=== PATIENT | male | born 1975 | race Caucasian/White ===

== ENCOUNTER 2024-05-12 16:15 | Emergency (ER) | payer BC, SELFPAY ==
[2024-05-12 16:15] VITALS: BMI 28.1
[2024-05-12 16:33] VITALS: BP 140/101
--- NOTE | 2024-05-12 16:55 | ED.GENMED ---
History of Present Illness
General
Chief Complaint: Flank Pain
Source: patient
Exam Limitations: none
Time Seen by Provider: 05/12/24 16:37
Nursing documentation reviewed up to this point in time: agreed with
History of Present Illness
History of Present Illness:
Patient is a 48-year male who presents to the complaining of right flank pain that started today gradually. He has had multiple kidney stones in the past but reports this started more gradual than abrupt but this does still feel similar to his pain
with previous stone. He passed all stones on his own. He has not seen urologist. He has nauseous and vomiting. Denies any fever or chills. He tells me he has not urinated at all today. He denies any radiation of pain. Denies any testicle pain.
Past History
Past History
ED Past Medical History: Asthma and Other (prostatitis, prostate stones Kidney stones)
ED Past Surgical History: Other (bone graft from right hip to right wrist)
Patient has exhibited threatening behavior?: No
Social History
Tobacco: Former smoker (Chews tobacco)
Alcohol: Occasional
Personal:
Living: with family
Review of Systems
Review of Systems
Allergies reviewed?: Yes
All Other Systems: ROS reviewed and negative except as documented in HPI and ROS
Constitutional: Reports no symptoms; Denies fever, fatigue or chills
Respiratory: Reports no symptoms
Cardiac: Reports no symptoms
ABD/GI: Reports nausea and vomiting; Denies abdominal pain
: Reports flank pain
Musculoskeletal: Reports no symptoms
Skin: Reports no symptoms
Neurological: Reports no symptoms
Hematologic/Lymphatic: Reports no symptoms
Psychiatric: Reports no symptoms
Phy Exam
General Physical Exam
General Presentation: no apparent distress
General age: appears stated age
General Skin: warm and dry
General Habitus: normal
General Mental: alert
General Hydration: appears well hydrated
Gastrointestinal Exam
Gastrointestinal Exam: non tender and soft
Neurological Exam
Neurological Exam: alert and oriented x3
Musculoskeletal Exam
Musculoskeletal Exam: full ROM
Skin Exam
Skin Exam: normal color and warm/dry
Psychiatric Exam
Psychiatric Exam: normal mood/affect
Course
Orders/Labs/Results
Orders:
Orders
05/12/24 16:46
Complete Blood Count/With Diff Urgent
Comprehensive Metabolic Panel Urgent
05/12/24 16:50
0.9% Sodium Chloride 1000 ml [Nss] 1,000 ml IV BOLUS
Ketorolac [Toradol] 15 mg IV NOW STA
Ondansetron Injectable [Zofran] 4 mg IV NOW STA
05/12/24 17:49
CT Abd/pel Without Iv Or Oral Urgent
Comment:
Reason For Exam: right flank pain
05/12/24 17:54
Vital Signs- Treatment ONCE
Frequency: Once
05/12/24 19:46
Ondansetron Injectable [Zofran] 4 mg IV NOW STA
05/12/24 19:47
Hydrocodone 5/APAP 325 [Avon 5/325] 1 tablet PO NOW STA
05/12/24 19:48
Urinalysis Reflex To Culture Urgent
Date Specimen was Collected: 05/12/24
Time Specimen was Collected: 16:38
Urine Microscopic Reflex Cult Urgent
Urine Culture Urgent
TRISHA Source: U
Specimen Description:
Date Specimen was Collected: 05/12/24
Time Specimen was Collected: 16:38
Abnormal Lab Results
05/12/24 05/12/24
16:46 19:48
MCH 31.3 H pg
(27.0-31.0)
Absolute Neuts (auto) 7.1 H 10^3/uL
(1.4-6.5)
Absolute Monos (auto) 0.7 H 10^3/uL
(0.1-0.6)
Neutrophils % 77.0 H %
(42.2-75.2)
Lymphocytes % 14.9 L %
(20.5-51.1)
Creatinine 1.4 H mg/dL
(0.7-1.3)
Albumin 5.1 H g/dl
(3.5-5.0)
Urine Ketones Trace A
(Negative)
Ur Occult Blood Reflex 4+ A
(Negative)
Urine Bilirubin 1+ A
(Negative)
Leukocyte Esterase Rfl Trace A
(Negative)
Urine RBC 70-80 A /HPF
(0-2)
Urine Bacteria (Reflex) Moderate A
(Negative)
05/12/24 16:46
05/12/24 16:46
Vital Signs
Initial and Last Documented VS:
Initial Vital Signs
Temp Pulse Resp BP Pulse Ox
98.0 F 78 16 140/101 98
05/12/24 16:33 05/12/24 16:33 05/12/24 16:33 05/12/24 16:33 05/12/24 16:33
Last Documented Vital Signs
Temp Pulse Resp BP Pulse Ox
98.0 F 78 16 140/101 98
05/12/24 16:33 05/12/24 16:33 05/12/24 16:33 05/12/24 16:33 05/12/24 16:33
MDM/Problems Addressed
Differential Diagnosis Includes:
not limited to : renal colic less likely pyelonephritis
MDM/Problems Addressed:
Patient is a 48-year male with prior history kidney stones presented with right flank pain. Patient has a 9 mm proximal right ureteral calculus with associated mild to moderate right hydro and urinary nephrosis. Patient was given Toradol fluids
feels well to go home will check urine and plan for discharge home with urology follow-up.
2025:
Dr. Alvares made aware it is likely the patient will not pass a stone he will need surgery
Patient still feels well enough to go home. urine neg for uti. will DC with Shane Barajas and close outpatient follow-up discussed to call urology tomorrow. Dr. Alvares plan for surgery next week unless fever chills or increased pain. Patient
is to return if any worsening of symptoms.
Chronic conditions affecting care:
hx of renal colic
*Critical Care Note
Total Time (30-74mins, 75-104mins- exclusive of procedures): Not Applicable
ED Attending Note
-
Portions of this chart may have been created with voice recognition software.� Occasional wrong word or��sound alike� substitutions may have occurred due to the inherent limitations of voice recognition software.
Discharge Plan
Departure
Patient Disposition: Home (Routine Discharge)
Date of Disposition: 05/12/24
Time of Disposition: 20:29
Patient with high blood pressure during this ER visit?: Yes
Condition: Fair
Covid-19: Not Applicable
Discharge Problem:
renal colic
Instructions: Kidney Stones (DC), How to Strain Your Urine, BLOOD PRESSURE, Narcotic Pain Medication
Prescriptions:
New
hydrocodone-acetaminophen 5-325 mg tablet
1 tab PO Q6H PRN (Reason: Pain) Qty: 10 0RF
tamsulosin [Flomax] 0.4 mg capsule
0.4 mg PO DAILY Qty: 7 0RF
ondansetron HCl 4 mg tablet
4 mg PO Q6H PRN (Reason: nausea and vomiting) Qty: 10 0RF
No Action
cholecalciferol (vitamin D3) 1,000 UNITS tablet
5,000 units PO DAILY
theanine 200 MG capsule
200 mg PO DAILY
Nitric Oxide
2 tab PO DAILY
Keto Bhp
1 tab PO DAILY
hydrocodone-acetaminophen 1 TABLET tablet
1 tab PO Q4HPRN PRN (Reason: pain ) Qty: 12 0RF
Referrals:
Brown Alvares MD [Active] -
Tomasz Baker MD [Family Provider] -
Activity Restrictions/Additional Instructions:
As discussed stay well-hydrated .
you may strain urine however with size of kidney stone is likely that you will need surgery. You have a 9 mm stone in the right ureter.
You may take ibuprofen 600 mg every hours with food. In addition a prescription for stronger narcotic pain medicine was sent to your pharmacy take as directed. This will cause constipation be sure to take [id number] stool softeners while
taking this. No driving or drink alcohol taking this medication. Zofran as needed for nausea. Return to the ER if any worsening of symptoms of increased pain nausea vomiting fever chills call urology tomorrow to make an appointment in the next
several days for reevaluation
Interventions
Interventions:
*Risk Screen - Suicide Last Done: 05/12/24 16:58
*Neglect/Abuse Screening Last Done: 05/12/24 16:58
*ED COVID-19 Vaccine History Last Done: 05/12/24 16:33
ED-Male Genitourinary Assessment Last Done: 05/12/24 16:58
Discharge Date and Time
Print Language: KITTITIAN
[2024-05-12 16:58] LABS: % Basophils 0.2 % (0-2); % Eosinophils 0.4 % (0-6); % Immature Granulocytes 0.3 % (0-0.5); % Lymphocytes 14.9 % (20.5-51.1); % Monocytes 7.2 % (1.7-9.3); Absolute Lymphocytes 1.4 10^3/uL (1.2-3.4); Absolute Monocytes 0.7 10^3/uL (0.1-0.6); Absolute Neutrophils 7.1 10^3/uL (1.4-6.5); Hemoglobin 15.7 g/dL (13.0-18.0); Mean Corp Hgb Conc. 35.7 g/dL (33.0-37.0); Mean Corpuscular Hgb 31.3 pg (27.0-31.0); Mean Corpuscular Volume 87.6 fL (80.0-94.0); Mean Platelet Volume 8.1 fL (7.4-10.4); Nucleated Red Blood Cells % 0 % (-); Platelet Count 251 10^3/uL (130-400); Red Blood Cell Count 5.02 10^6/uL (4.70-6.10); Red Cell Dist. Width 13.3 % (11.5-14.5); White Blood Cell Count 9.2 10^3/uL (4.8-10.8)
[2024-05-12] MEDS: ZOFRAN 4 MG IV ×2 (16:59→19:54)
[2024-05-12] MEDS: TORADOL 15 MG IV (16:59)
[2024-05-12] MEDS: NSS 1000 IV (17:04)
[2024-05-12 17:41] LABS: ALT (SGPT) 38 U/L (0-50); AST (SGOT) 29 U/L (17-59); Albumin 5.1 g/dl (3.5-5.0); Alkaline Phosphatase 71 U/L (38-126); Blood Urea Nitrogen 16 mg/dl (9-20); Calcium 10.2 mg/dl (8.4-10.2); Carbon Dioxide 26 mmol/L (22-30); Chloride 105 mmol/L (98-107); Estimated Creatinine Clearance 78 ml/min; Glucose 90 mg/dl (70-99); Potassium 4.5 mmol/L (3.5-5.1); Sodium 140 mmol/L (135-145); Total Bilirubin 0.9 mg/dl (0.2-1.3); Total Protein 7.6 g/dl (6.3-8.2); eGFR > 60.00
[2024-05-12] MEDS: NORCO 5/325 1 TABLET PO (19:53)
[2024-05-12 20:01] LABS: Urine Albumin Trace (Neg - Trace); Urine Bilirubin 1+ (Negative); Urine Character Clear (Clear); Urine Color Yellow; Urine Glucose Negative (Negative); Urine Ketone Trace (Negative); Urine Leukocyte Trace (Negative); Urine Nitrite Negative (Negative); Urine Occult Blood 4+ (Negative); Urine Specific Gravity 1.025 (<1.030); Urine Urobilinogen Negative (Neg - 1+)
[2024-05-12 20:09] LABS: Urine Calcium Oxalate Crystals Present; Urine Mucus Few
[2024-05-12 20:10] LABS: Urine Bacteria Moderate (Negative); Urine Red Blood Cell 70-80 /HPF (0-2)
[2024-05-12 20:54] VITALS: BP 117/68
== END 2024-05-12 20:55 | disposition home or self-care (01) ==
LOC: EMR 16:15
PROVIDERS: EMERGENCY PHYSICIAN Student in an Organized Health Care Education/Training Program; FAMILY PHYSICIAN Family Medicine
DX: N23 Unspecified renal colic (principal); J45.909 Unspecified asthma, uncomplicated; N41.9 Inflammatory disease of prostate, unspecified; Z87.891 Personal history of nicotine dependence; Z87.442 Personal history of urinary calculi
CPT/HCPCS: 99284; 96374; 96375; 96376; 96361; 74176; 80053; 81003; 81015; 85025; 87086

== ENCOUNTER 2024-05-13 21:25 | Observation (INO) | payer BC, SELFPAY ==
[2024-05-13 16:52] VITALS: BP 135/95
[2024-05-13] MEDS: ZOFRAN 4 MG IV (19:36)
[2024-05-13] MEDS: DILAUDID 0.5 MG IV (19:36)
[2024-05-13] MEDS: NSS 1000 IV ×2 (19:37→22:54)
--- NOTE | 2024-05-13 19:43 | ED.GENMED ---
History of Present Illness
General
Chief Complaint: Male Genito-Urinary Symptoms
Source: patient
Exam Limitations: none
Time Seen by Provider: 05/13/24 19:04
Nursing documentation reviewed up to this point in time: agreed with
History of Present Illness
History of Present Illness:
Patient to ED wt complaint of right flank pain. He was seen in ED yesterday. CT reveals 9mm proximal ureteral stone with moderate hydroureteronephrosis. Dr. Alvares notifed by provider. Patient was offered admission, discussed need for
surgical intervention however he opted to be discharged home and follow up with urology in office. He returnt tonight because pain has become intolerable. Denies fever/chills. +n/v. Brought to ED by spouse.
Past History
Past History
ED Past Medical History: Asthma and Other (prostatitis, prostate stones Kidney stones)
ED Past Surgical History: Other (bone graft from right hip to right wrist)
Patient has exhibited threatening behavior?: No
Social History
Tobacco: Former smoker (Chews tobacco)
Alcohol: Occasional
Personal:
Living: with family
Review of Systems
Review of Systems
Allergies reviewed?: Yes
All Other Systems: ROS reviewed and negative except as documented in HPI and ROS
Constitutional: Reports no symptoms
EENT: Reports no symptoms
Respiratory: Reports no symptoms
Cardiac: Reports no symptoms
ABD/GI: Reports nausea and vomiting
: Reports flank pain
Musculoskeletal: Reports no symptoms
Skin: Reports no symptoms
Neurological: Reports no symptoms
Psychiatric: Reports no symptoms
Phy Exam
General Physical Exam
General Presentation: well appearing and moderate distress
General age: appears stated age
General Skin: warm and dry
General Habitus: normal
General Mental: alert
Gastrointestinal Exam
Gastrointestinal Exam: soft and no organomegaly
Musculoskeletal Exam
Musculoskeletal Exam: full ROM and neuro vasc intact
Skin Exam
Skin Exam: normal color, warm/dry and no rash
Psychiatric Exam
Psychiatric Exam: normal mood/affect
Course
Orders/Labs/Results
Orders:
Orders
05/13/24 19:08
0.9% Sodium Chloride 1000 ml [Nss] 1,000 ml IV BOLUS
HYDROmorphone [Dilaudid] 0.5 mg IV NOW STA
05/13/24 19:09
Ondansetron Injectable [Zofran] 4 mg IV NOW STA
05/13/24 19:46
Complete Blood Count/With Diff Urgent
Comprehensive Metabolic Panel Urgent
Urinalysis Reflex To Culture Urgent
Date Specimen was Collected: 05/13/24
Time Specimen was Collected: 19:37
Urine Microscopic Reflex Cult Urgent
Urine Culture Urgent
TRISHA Source: U
Specimen Description:
Date Specimen was Collected: 05/13/24
Time Specimen was Collected: 19:37
05/13/24 20:20
CefTRIAXone [Rocephin] 1,000 mg IV NOW STA
05/13/24 20:32
Admit/Transfer Patient As Directed
Co-Sign Provider:
Level of Care: Observation services
Assign to:: Medical/Surgical
Physician / Group: [email or web address]
Diagnosis: worseninf Rt ureterocolic pain due to obstructing stone
Reason for Hospitalization: 9 mm proximal right ureteral calculus with associated mild to moderate right
hydroureteronephrosis.
05/13/24 20:33
Code Status As Directed
Resuscitation Status: Full Code
05/13/24 21:00
Flush (0.9% Sodium Chloride) [Flush (Nss)] See Dose Instructions IV PER PROTOCOL
05/13/24 21:22
Sterile Water [Sterile Water For Injection] 10 ml .ROUTE .[facility]
05/13/24 22:16
0.9% Sodium Chloride 1000 ml [Nss] 1,000 ml IV 100 mls/hr
Acetaminophen [Tylenol] 650 mg PO Q4HPRN PRN
Bisacodyl [Dulcolax] 10 mg RECTAL [id number] PRN
Docusate W/Senna [Senokot-S] 1 tablet PO BIDPRN PRN
HYDROmorphone [Dilaudid] 0.5 mg IV Q4HPRN PRN
Ondansetron Injectable [Zofran] 4 mg IV Q6HPRN PRN
Polyethylene Glycol Powder [Miralax] 17 grams PO DAILYPRN PRN
05/13/24 22:16
Activity As Directed
Activity Level: With Assistance
Intake/ Output As Directed
Frequency: Per unit guidelines
Pneumatic Compression Sleeves As Directed
Type: Knee high
Vital Signs As Directed
Frequency: Per unit guidelines
DX Deep Vein Thrombosis Video Routine
05/14/24 Breakfast
NPO
Allow oral meds: Yes
Allow clear liquids: Sips of Clears
NPO with Ice Chips: Yes
Basic Metabolic Panel IN AM
Complete Blood Count/No Diff IN AM
Abnormal Lab Results
05/13/24
19:46
RBC 4.55 L 10^6/uL
(4.70-6.10)
MCH 31.6 H pg
(27.0-31.0)
Absolute Lymphs (auto) 0.9 L 10^3/uL
(1.2-3.4)
Absolute Monos (auto) 0.7 H 10^3/uL
(0.1-0.6)
Neutrophils % 76.3 H %
(42.2-75.2)
Lymphocytes % 12.9 L %
(20.5-51.1)
Monocytes % 9.4 H %
(1.7-9.3)
Creatinine 1.7 H mg/dL
(0.7-1.3)
Urine Ketones Trace A
(Negative)
Ur Occult Blood Reflex 4+ A
(Negative)
Urine Bilirubin 1+ A
(Negative)
Leukocyte Esterase Rfl 1+ A
(Negative)
Urine RBC 40-50 A /HPF
(0-2)
Urine WBC (Reflex) 26-30 A /HPF
(0-5)
Urine Bacteria (Reflex) Few A
(Negative)
Urine Yeast Moderate A
(Negative)
05/13/24 19:46
05/13/24 19:46
Vital Signs
Initial and Last Documented VS:
Initial Vital Signs
Temp Pulse Resp BP Pulse Ox
98.6 F 80 16 135/95 98
05/13/24 16:52 05/13/24 16:52 05/13/24 16:52 05/13/24 16:52 05/13/24 16:52
Last Documented Vital Signs
Temp Pulse Resp BP Pulse Ox
98.6 F 65 18 109/65 96
05/13/24 16:52 05/13/24 22:00 05/13/24 22:00 05/13/24 22:00 05/13/24 22:00
*Critical Care Note
Total Time (30-74mins, 75-104mins- exclusive of procedures): Not Applicable
Update Note
Update Note:
Patient will require admission tonight due to worsening pain. tiger text sent to Dr. Zayas. NPO after midnight tonight, for OR in AM. Patient is admitted to hospitalists service.,
ED Attending Note
-
Portions of this chart may have been created with voice recognition software.� Occasional wrong word or��sound alike� substitutions may have occurred due to the inherent limitations of voice recognition software.
Discharge Plan
Departure
Patient Disposition: Admit
Date of Disposition: 05/13/24
Time of Disposition: 19:47
Presentation/result/management discussed w/ accepting MD/DO: Hospitalist
Condition: Fair
Discharge Problem:
Kidney stone
Interventions
Interventions:
*Risk Screen - Suicide Last Done: 05/13/24 19:55
*General Assessment Last Done: 05/13/24 16:52
*Neglect/Abuse Screening Last Done: 05/13/24 19:55
ED- Fall Risk Assessment Last Done: 05/13/24 22:07
*ED COVID-19 Vaccine History Last Done: 05/13/24 16:52
*Nursing Disposition Last Done: 05/13/24 22:07
ED-Male Genitourinary Assessment Last Done: 05/13/24 19:48
Discharge Date and Time
Discharge Date/Time: 05/13/24 22:13
[2024-05-13 19:54] LABS: % Basophils 0.4 % (0-2); % Eosinophils 0.6 % (0-6); % Immature Granulocytes 0.4 % (0-0.5); % Lymphocytes 12.9 % (20.5-51.1); % Monocytes 9.4 % (1.7-9.3); % Neutrophils 76.3 % (42.2-75.2); Absolute Lymphocytes 0.9 10^3/uL (1.2-3.4); Absolute Monocytes 0.7 10^3/uL (0.1-0.6); Absolute Neutrophils 5.5 10^3/uL (1.4-6.5); Hematocrit 39.7 % (39.0-52.0); Hemoglobin 14.4 g/dL (13.0-18.0); Mean Corp Hgb Conc. 36.3 g/dL (33.0-37.0); Mean Corpuscular Hgb 31.6 pg (27.0-31.0); Mean Corpuscular Volume 87.3 fL (80.0-94.0); Mean Platelet Volume 8.1 fL (7.4-10.4); Nucleated Red Blood Cells % 0 % (-); Platelet Count 205 10^3/uL (130-400); Red Blood Cell Count 4.55 10^6/uL (4.70-6.10); Red Cell Dist. Width 13.2 % (11.5-14.5); White Blood Cell Count 7.2 10^3/uL (4.8-10.8)
[2024-05-13 19:58] LABS: Urine Albumin Trace (Neg - Trace); Urine Bilirubin 1+ (Negative); Urine Character Slightly Cloudy (Clear); Urine Color Amber; Urine Glucose Negative (Negative); Urine Ketone Trace (Negative); Urine Leukocyte 1+ (Negative); Urine Nitrite Negative (Negative); Urine Occult Blood 4+ (Negative); Urine Specific Gravity 1.025 (<1.030); Urine Urobilinogen Negative (Neg - 1+)
[2024-05-13 20:00] VITALS: BP 121/73
[2024-05-13 20:11] LABS: Urine Calcium Oxalate Crystals Present; Urine Red Blood Cell 40-50 /HPF (0-2)
[2024-05-13 20:12] LABS: ALT (SGPT) 29 U/L (0-50); AST (SGOT) 26 U/L (17-59); Albumin 4.1 g/dl (3.5-5.0); Alkaline Phosphatase 69 U/L (38-126); Blood Urea Nitrogen 20 mg/dl (9-20); Calcium 9.5 mg/dl (8.4-10.2); Carbon Dioxide 23 mmol/L (22-30); Chloride 106 mmol/L (98-107); Glucose 93 mg/dl (70-99); Potassium 4.3 mmol/L (3.5-5.1); Sodium 137 mmol/L (135-145); Total Bilirubin 0.7 mg/dl (0.2-1.3); Total Protein 6.3 g/dl (6.3-8.2); Urine Bacteria Few (Negative); Urine White Cell 26-30 /HPF (0-5); Urine Yeast Moderate (Negative); eGFR 49.42
--- NOTE | 2024-05-13 20:22 | HPS.HSE ---
Family Physician
-
Family Physician: Tomasz Baker
Chief Complaint
-
Worsening Rt flank pain
History of Present Illness
48 M HX Kidney and prostate stones BiB , seen at ER for evaluation of rt flank pain:
- was seen at ER yesterday and noted 9 mm proximal right ureteral calculus offered admission but opted to go home and OP urology f/u .
- retuned to ER today due to R flank pain becomes intolerable
- Denies fever/chills.
- HX multiple kidney and prostate stones x6
Medical History
Past Medical History
Past Medical History: Reports Other (prostatitis, prostate stones Kidney stones)
Past Surgical History: Reports Orthopedic ((bone graft from right hip to right wrist))
Social History
Tobacco: Other (chew tobacco )
Alcohol: None
Drug: None
Personal:
Living: With Family
Family History
Family History: Not pertinent
Allergies / Home Medications
Allergies reflects when Allergies were last updated in [facility].
Home Medications with original date entered in [facility]
Allergy/Medication List:
Allergies
Allergy/AdvReac Type Severity Reaction Status Date / Time
aspirin Allergy nose bleeds Verified 05/13/24 16:54
crab Allergy Unknown Verified 05/13/24 16:54
hazelnut Allergy Unknown Verified 05/13/24 16:54
Home Medications
Himalayan Shilajit 600 mg PO DAILYPRN PRN constipation 05/13/24
hydrocodone 5 mg-acetaminophen 325 mg tablet 1 tab PO Q4HPRN PRN severe pain 05/13/24
ondansetron HCl 8 mg tablet 4 mg PO Q8HPRN PRN nausea/vomiting 05/13/24
tamsulosin 0.4 mg capsule 0.4 mg PO DAILY@1500 05/13/24
Review of Systems
-
Constitutional: Reports No Symptoms
EENT: Reports No Symptoms
Respiratory: Reports No Symptoms
Cardiac: Reports No Symptoms
Abdomen/GI: Reports No Symptoms
: Reports See HPI
Musculoskeletal: Reports No Symptoms
Skin: Reports No Symptoms
Neurological: Reports No Symptoms
Endocrine: Reports No Symptoms
Hematologic/Lymphatic: Reports No Symptoms
Psych: Reports No Symptoms
Physical Exam
Vital Signs
Vital Signs
Temp Pulse Resp BP Pulse Ox
98.6 F 78 14 135/95 97
05/13/24 16:52 05/13/24 19:45 05/13/24 19:45 05/13/24 16:52 05/13/24 19:45
Physical Exam
General: Well Developed, Well Nourished and No Apparent Distress
HEENT: NormoCephalic, Moist mucous membranes and Atraumatic
Respiratory: Clear
Cardiac: S1/S2 and Regular Rhythm; No Murmur or Rub
GI: Soft, Non Tender, Non Distended and Normal Bowel Sounds; No Organomegaly
Rectal: Deferred by Provider
Musculoskeletal: No Clubbing, No Cyanosis and No Edema
Skin: No Rash
Neuro: Nonfocal/grossly intact
Laboratory Results
-
05/13/24 19:46
05/13/24 19:46
Laboratory Results
Total Bilirubin 0.7 mg/dl (0.2-1.3) 05/13/24 19:46
AST 26 U/L (17-59) 05/13/24 19:46
ALT 29 U/L (0-50) 05/13/24 19:46
Alkaline Phosphatase 69 U/L (38-126) 05/13/24 19:46
Data Reviewed
-
CT Scan: Report Reviewed by me
Lab Data: Labs Reviewed by me
Old Records: Reviewed
Impression/Plan
-
Reviewed VS: afebrile
Data
nl CBC
Cr 1.7 - 1.4 on 05/12
UA : RBC 40-50 WCC 26-[address] Abd/pel Without Iv Or Oral
- 9 mm proximal right ureteral calculus with associated mild to moderate right hydroureteronephrosis.
- 8 mm nonobstructing calculus within the left renal pelvis. No left-sided hydronephrosis.
NO PRIOR hospitalist admission:
ASSESSMENT & PLAN
Worsening Rt flank ureterocolic pain
9 mm proximal right ureteral calculus with associated mild to moderate right hydroureteronephrosis.
Afebrile. No chills. No leucocytosis
HX multiple Kidney and prostate stones times 6 wit HX stents
- NPO and IVF
- Analgesia PRN
- antiemetics
- on Tamsulosin
- for OR in AM per Uro
- Uro consulted
DVT Px: SCD
Code: Full
Obs MS
[2024-05-13] MEDS: ROCEPHIN 1000 MG IV (21:24)
[2024-05-13 21:25] VITALS: BP 96/65
[2024-05-13 22:00] VITALS: BP 109/65
[2024-05-13 23:06] VITALS: BP 136/80
--- NOTE | 2024-05-13 23:06 | PTCARENOTE ---
pt arrived via w/c, walked into room, aaox3, VSS, no c/o pain as of now. see MAR and assessment for further details. call sanchez within reach
[2024-05-14 07:00] VITALS: BP 113/71
[2024-05-14 07:02] LABS: Hematocrit 38.2 % (39.0-52.0); Hemoglobin 13.5 g/dL (13.0-18.0); Mean Corp Hgb Conc. 35.3 g/dL (33.0-37.0); Mean Corpuscular Hgb 31.5 pg (27.0-31.0); Mean Corpuscular Volume 89.3 fL (80.0-94.0); Mean Platelet Volume 8.4 fL (7.4-10.4); Platelet Count 196 10^3/uL (130-400); Red Blood Cell Count 4.28 10^6/uL (4.70-6.10); Red Cell Dist. Width 13.5 % (11.5-14.5); White Blood Cell Count 4.2 10^3/uL (4.8-10.8)
[2024-05-14 07:50] LABS: Blood Urea Nitrogen 14 mg/dl (9-20); Calcium 9.3 mg/dl (8.4-10.2); Carbon Dioxide 25 mmol/L (22-30); Chloride 107 mmol/L (98-107); Estimated Creatinine Clearance 86 ml/min; Glucose 91 mg/dl (70-99); Potassium 4.5 mmol/L (3.5-5.1); Sodium 137 mmol/L (135-145); eGFR > 60.00
[2024-05-14] MEDS: NSS 1000 IV (08:53)
--- NOTE | 2024-05-14 09:20 | W.PN.URO.CBU ---
Today's Communication / Plan
-
Discussed CT scan findings with patient
Ongoing renal colic has patient very interested in proceeding with ureteroscopic stone manipulation today
Discussed the risk of right ureteral injury/perforation, bladder injury and potential need to simply place a JJ stent today of stone is unable to be endoscopically accessed
Written and verbal consent provided
Assessment / Plan
-
Partially obstructing 9mm right proximal ureteral stone
Right hydronephrosis
Right renal colic
Left renal pelvic stone
CAMELIA
Diagnosis
-
Date of Service: May 14, 2024
-
Patient Diagnosis:
Partially obstructing 9 mm right proximal ureteral calculus
Right renal colic
Left renal pelvic stone
CAMELIA
Subjective
-
Patient has had intermittent bouts of right renal colic and SP pain over the past 36-48 hours
No nausea
No chills
No dysuria
Objective
-
Vital Signs
Temp Pulse Resp BP Pulse Ox
98.3 F 53 18 113/71 96
05/14/24 07:00 05/14/24 07:00 05/14/24 07:00 05/14/24 07:00 05/14/24 07:00
Intake and Output
05/13/24 05/14/24 05/15/24
06:59 06:59 06:59
Intake Total 460 / 460
Balance 460 / 460
Intake:
Oral fluids 460 / 460
Other:
Number of approximated MODERATE 2
amounts of urine
Laboratory Results
05/14/24 06:36
05/14/24 06:36
05/12/24 CT scan images personally reviewed
Review of Systems
-
Constitutional: No Symptoms
Respiratory: No Symptoms
Cardiac: No Symptoms
Abdomen/GI: Abdominal Pain
: No Symptoms
Neurological: No Symptoms
Physical Exam
-
General - well developed, well nourished, no acute distress
Abdomen - soft, right CVAT
Genitalia - normal
Neuro - AOx3, no motor deficits
Counseling
-
OR today
--- NOTE | 2024-05-14 13:01 | CM ---
Reviewed chart, met with patient and spouse to obtain information for assessment. Patient stated that he lives with his spouse and two children in a two story home with one step to enter. He describes himself as independent with ADLs, personal care,
dressing and bathing. He denied any DME. He is able to cook, clean, do laundry and sweat band separator. He drives and can get himself to all of his appointments and does his own shopping. 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
He has never had VN services.
He has not been to a SNF.
Patient has a prescription plan and uses, [facility] in [place] for all of their medications.
His PCP is, Dr. Tomasz Baker.
Obs letter signed and is on chart.
Plan: Case management will continue to follow and assist with discharge planning. Home with no needs.
--- NOTE | 2024-05-14 14:06 | W.PN.HOSP.TC ---
Addendum entered and electronically signed by Blaze Travis DO 05/14/24 15:23:
I spoke with urology, Dr. Zayas.
Cystoscopy completed, stent placed and stone removed.
Okay for discharge this afternoon after he voids. Outpatient follow-up with urology. Stone sent for analysis.
Original Note:
Today's Communication/Plan
-
Await cystoscopy
Assessment / Plan
Assessment / Plan
Gen-AAOx3, NAD, obese
HEENT-NC, AT, anicteric, clear oral mm
Neck-supple
CV-reg, no M, +S1/S2
Lungs-clear B/L
Abd-soft, NT, ND
Ext-no edema
Musculoskeletal-no cyanosis, clubbing
Skin-warm and dry
Neuro-grossly non-focal
Psych-calm, cooperative
CAMELIA - presumed diagnosis based on elevated creatinine of 1.7 on admission. Etiology of CAMELIA likely due to obstruction from nephrolithiasis. Component of volume depletion possible as well. Improved to 1.4 today with IV fluids. Baseline creatinine
unknown but was noted to be 1.1 in 2021.
Symptomatic nephrolithiasis - CT scan confirms obstructing right proximal ureteral stone, 9 mm, with mild to moderate right hydro ureteronephrosis. In addition, 8 mm nonobstructing stone noted in the left renal pelvis, no left-sided hydronephrosis
noted. Pain currently controlled.
Currently n.p.o., awaiting cystoscopy today.
No signs or symptoms of infection. Urine culture from 05/12 and 05/13 negative. Hold further antibiotics.
Patient interested in stone analysis, asking questions regarding how to prevent further stones.
Hx prostatitis
Obesity due to excess calories
Full code
Dispo - pending cystoscopy. Patient eager to go home later today if possible. Will await urology decision.
Anticipated Discharge: Within 24 hours
Subjective/Interval History
-
Date of Service: May 14, 2024
Patient seen and examined. Currently denies pain.
Objective Data
-
Labs:
Laboratory Results
05/14/24
06:36
WBC 4.2 L
Hgb 13.5
Hct 38.2 L
Plt Count 196
Sodium 137
Potassium 4.5
Chloride 107
Carbon Dioxide 25
BUN 14
Creatinine 1.4 H
Glucose 91
Calcium 9.3
Vital Signs:
Vital Signs
Temp Pulse Resp BP Pulse Ox
98.3 F 53 18 113/71 96
05/14/24 07:00 05/14/24 07:00 05/14/24 07:00 05/14/24 07:00 05/14/24 07:00
I&O
05/13/24 05/14/24 05/15/24
06:59 06:59 06:59
Intake Total 460 / 460
Balance 460 / 460
Review of Systems
-
History Source: Patient
All other systems: Reviewed and negative
--- NOTE | 2024-05-14 15:10 | W.IMMPOSTOP ---
Surgical Immed Post Op Note
-
Primary Surgeon: Chana
Assisting Surgeon: None
Pre-op Diagnosis: Right ureteral stone, right renal colic
Post-op Diagnosis: Same
Procedure Performed: Right ureteroscopic laser lithotripsy, stone extraction and JJ stent placement
Anesthesia Type: GET
Specimen / Cultures: Stone fragments
Estimated Blood Loss: None
Complications: None
[2024-05-14 15:21] VITALS: BP 113/71; BP 114/65
[2024-05-14 15:30] VITALS: BP 121/80
--- NOTE | 2024-05-14 15:31 | W.DS.TRANS ---
DC Summary - Relationship Consultant
-
Discharge Instructions:
Discharge Diagnosis/Procedures Nephrolithiasis, acute kidney injury
Diet Regular
Activity As tolerated
Driving Restrictions As prior to admission
Bathing Restrictions None
Blood Work BMP next week with your primary care doctor
Instructions:
Stand-Alone Forms:
Changes to Home Medications: No
Discharge Medications:
DC Medications w/original date entered in [employer]
hydrocodone 5 mg-acetaminophen 325 mg tablet 1 tab PO Q4HPRN PRN severe pain 05/13/24
ondansetron HCl 8 mg tablet 4 mg PO Q8HPRN PRN nausea/vomiting 05/13/24
tamsulosin 0.4 mg capsule 0.4 mg PO DAILY@1500 Urinary Issue 05/13/24
Home Medication Changes
Pending Results: No
--- NOTE | 2024-05-14 16:25 | PTCARENOTE ---
1610 Pt returned from PACU AAOX3. Voided at 1625 350 of pink color urine. Pt given menu and will call for his meal.
[2024-05-14 16:30] VITALS: BP 130/79
== END 2024-05-14 18:08 | disposition home or self-care (01) ==
LOC: 3 WEST ACU 21:25
PROVIDERS: Nurse Practitioner; Specialist; ADMITTING PHYSICIAN Internal Medicine; ATTENDING PHYSICIAN Hospitalist; EMERGENCY PHYSICIAN Emergency Medicine; FAMILY PHYSICIAN Family Medicine
DX: N13.2 Hydronephrosis with renal and ureteral calculous obstruction (principal); R10.9 Unspecified abdominal pain; F17.220 Nicotine dependence, chewing tobacco, uncomplicated; Z88.6 Allergy status to analgesic agent; N17.9 Acute kidney failure, unspecified; E66.09 Other obesity due to excess calories; Z68.32 Body mass index [BMI] 32.0-32.9, adult; Z91.018 Allergy to other foods; Z91.013 Allergy to seafood; Z87.442 Personal history of urinary calculi
CPT/HCPCS: 52356; 74018; 76000; 80048; 80053; 81003; 81015; 82365; 85025; 85027; 87086; 96361; 96374; 96375; 99285; A4300; C1894; C2617; G0378

== ENCOUNTER 2024-06-19 06:36 | Day surgery (SDC) | payer OTHER, SELFPAY ==
[2024-06-19] VITALS (10 sets, daily range): BP systolic 98–125; BP diastolic 61–81; BMI 30.8
[2024-06-19] MEDS: Pyridium 200 MG PO (11:50)
[2024-06-19] MEDS: NORMOSOL-R 1000 IV (12:06)
[2024-06-19] MEDS: TYLENOL 1000 MG PO (12:19)
--- NOTE | 2024-06-19 13:39 | PTCARENOTE ---
Rec'd sleepy on stretcher with HOB elevated low fowlers, oriented x 3 by RB, reassured, positioned for comfort, no c/o at present
--- NOTE | 2024-06-19 13:51 | SUR.PHASEI ---
Arouses easily, c/o itchy nose, reassured, Dr Zayas in
--- NOTE | 2024-06-19 14:04 | SUR.PHASEI ---
More alert, vss, repositioned for comfort, romario well
[2024-06-19] MEDS: ROXICODONE 5 MG PO (14:43)
== END 2024-06-19 16:02 | disposition home or self-care (01) ==
LOC: SDS 06:36
PROVIDERS: ATTENDING PHYSICIAN Specialist
DX: N20.0 Calculus of kidney (principal)
CPT/HCPCS: 52356; 74018; 76000; C1894; C2617

== ENCOUNTER 2024-06-21 15:35 | Emergency (ER) | payer OTHER, SELFPAY ==
[2024-06-21 15:37] VITALS: BP 120/79
[2024-06-21] MEDS: NSS 1000 IV (17:13)
[2024-06-21] MEDS: DILAUDID 1 MG IV (17:13)
[2024-06-21] MEDS: TORADOL 15 MG IV (17:13)
[2024-06-21 17:19] VITALS: BP 122/83
--- NOTE | 2024-06-21 17:20 | ED.GENMED ---
History of Present Illness
<Krysta Perez PA-C - Last Filed: 06/22/24 00:00>
General
Chief Complaint: Flank Pain
Source: patient
Exam Limitations: none
Time Seen by Provider: 06/21/24 16:08
Nursing documentation reviewed up to this point in time: agreed with
History of Present Illness
History of Present Illness:
48 y/o M with h/o kidney stone
s/p L sided lithotripsy and stent placement 06/[address] ramon
here with moderate to severe pain
mostly with urination in his penis, burning and dribbling and feels like he cannot void appropriately
also with L sided back pain and feeling warm/fatigued
he has tried gemtesa since yesterday 1 morales and 2 doses of valium which were called in for him but other than making him sleepy he hasn't had relief
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 alvares today who recommended he come in for eval of whether or not pt is in urinary retention
pt has not had any known fever, vomiting, gross hematuria (the gemtesa colors his pee a little); no clots; feels razor blades with peeing
Past History
<Krysta Perez PA-C - Last Filed: 06/22/24 00:00>
Past History
ED Past Medical History: Asthma and Other (prostatitis, prostate stones Kidney stones)
ED Past Surgical History: Other (bone graft from right hip to right wrist)
Patient has exhibited threatening behavior?: No
Social History
Tobacco: Former smoker (Chews tobacco)
Alcohol: Occasional
Personal:
Living: with family
Review of Systems
<FELTON Duffy Last Filed: 06/22/24 00:00>
Review of Systems
Allergies reviewed?: Yes
All Other Systems: Not applicable
Phy Exam
<Krysta Perez PA-C - Last Filed: 06/22/24 00:00>
Physical Exam
Physical Exam:
GENERAL: Alert, uncomfortable, not writhing but just slow moving
Neck: supple
CARDIAC: Regular rate and rhythm .
LUNGS: Clear breath sounds bilaterally, no acute respiratory distress, no wheezes/rales/rhonchi
ABDOMEN: Soft, normal bowel sounds, nondistended, mild LLQ/flank tenderness, no guarding, no rebound, neg jerome's
mod L cva tenderness
; decined exam
NEUROLOGICAL: Alert and oriented, no focal neuro deficits
SKIN: Warm and dry, skin intact.
PSYCH: Normal and appropriate interaction.
Course
<Krysta Perez PA-C - Last Filed: 06/22/24 00:00>
Orders/Labs/Results
Orders:
Orders
06/21/24 16:52
Bladder Scan- Treatment ONCE
0.9% Sodium Chloride 1000 ml [Nss] 1,000 ml IV BOLUS
HYDROmorphone [Dilaudid] 1 mg IV NOW STA
Ketorolac [Toradol] 15 mg IV NOW STA
06/21/24 17:15
Complete Blood Count/With Diff Urgent
Comprehensive Metabolic Panel Urgent
06/21/24 19:29
Urinalysis Reflex To Culture Urgent
Date Specimen was Collected: 06/21/24
Time Specimen was Collected: 19:28
Urine Microscopic Reflex Cult Urgent
Urine Culture Urgent
TRISHA Source: U
Specimen Description:
Date Specimen was Collected: 06/21/24
Time Specimen was Collected: 19:28
06/21/24 20:05
Phenazopyridine HCl [Pyridium] 200 mg PO NOW STA
06/21/24 20:21
Fluconazole [Diflucan] 150 mg PO NOW STA
Abnormal Lab Results
06/21/24 06/21/24
17:15 19:29
MCH 31.9 H pg
(27.0-31.0)
Absolute Monos (auto) 0.7 H 10^3/uL
(0.1-0.6)
Monocytes % 10.3 H %
(1.7-9.3)
Ur Occult Blood Reflex 4+ A
(Negative)
Leukocyte Esterase Rfl 2+ A
(Negative)
Urine RBC 30-40 A /HPF
(0-2)
Urine WBC (Reflex) 26-30 A /HPF
(0-5)
Urine Yeast Few A
(Negative)
Urine Albumin (Reflex) 1+ A
(Neg - Trace)
06/21/24 17:15
06/21/24 17:15
Vital Signs
Initial and Last Documented VS:
Initial Vital Signs
Temp Pulse Resp BP Pulse Ox
98.5 F 94 20 120/79 97
06/21/24 15:37 06/21/24 15:37 06/21/24 15:37 06/21/24 15:37 06/21/24 15:37
Last Documented Vital Signs
Temp Pulse Resp BP Pulse Ox
98.5 F 65 16 113/70 97
06/21/24 15:37 06/21/24 20:17 06/21/24 20:17 06/21/24 20:17 06/21/24 20:17
<Staci Kendrick, INSTRUMENTATION ENGINEERING TECHNICIAN - Last Filed: 06/22/24 10:13>
Orders/Labs/Results
Orders:
Orders
06/21/24 16:52
Bladder Scan- Treatment ONCE
0.9% Sodium Chloride 1000 ml [Nss] 1,000 ml IV BOLUS
HYDROmorphone [Dilaudid] 1 mg IV NOW STA
Ketorolac [Toradol] 15 mg IV NOW STA
06/21/24 17:15
Complete Blood Count/With Diff Urgent
Comprehensive Metabolic Panel Urgent
06/21/24 19:29
Urinalysis Reflex To Culture Urgent
Date Specimen was Collected: 06/21/24
Time Specimen was Collected: 19:28
Urine Microscopic Reflex Cult Urgent
Urine Culture Urgent
TRISHA Source: U
Specimen Description:
Date Specimen was Collected: 06/21/24
Time Specimen was Collected: 19:28
06/21/24 20:05
Phenazopyridine HCl [Pyridium] 200 mg PO NOW STA
06/21/24 20:21
Fluconazole [Diflucan] 150 mg PO NOW STA
Abnormal Lab Results
06/21/24 06/21/24
17:15 19:29
MCH 31.9 H pg
(27.0-31.0)
Absolute Monos (auto) 0.7 H 10^3/uL
(0.1-0.6)
Monocytes % 10.3 H %
(1.7-9.3)
Ur Occult Blood Reflex 4+ A
(Negative)
Leukocyte Esterase Rfl 2+ A
(Negative)
Urine RBC 30-40 A /HPF
(0-2)
Urine WBC (Reflex) 26-30 A /HPF
(0-5)
Urine Yeast Few A
(Negative)
Urine Albumin (Reflex) 1+ A
(Neg - Trace)
06/21/24 17:15
06/21/24 17:15
Vital Signs
Initial and Last Documented VS:
Initial Vital Signs
Temp Pulse Resp BP Pulse Ox
98.5 F 94 20 120/79 97
06/21/24 15:37 06/21/24 15:37 06/21/24 15:37 06/21/24 15:37 06/21/24 15:37
Last Documented Vital Signs
Temp Pulse Resp BP Pulse Ox
98.5 F 65 16 113/70 97
06/21/24 15:37 06/21/24 20:17 06/21/24 20:17 06/21/24 20:17 06/21/24 20:17
<Krysta Perez PA-C - Last Filed: 06/22/24 00:00>
MDM/Problems Addressed
Differential Diagnosis Includes:
uti, stent colic, urinary retetnion
MDM/Problems Addressed:
48-year-old male status post a left sided lithotripsy and ureteral stent placement 3 days ago presenting for what sounds like stent colic with left flank pain that comes in waves associated with some burning with urination, dribbling of urine.
Patient has already been on oxycodone, Tylenol and was added Gemtesa as well as Valium yesterday. Patient took 2 doses really had relief. He says he just has pretty severe agony with urination and tries not to urinate. He has not had any systemic
symptoms. He called the urologist who told him to come in to be sure he was not retaining. I spoke with the urologist on-call Dr. Alvares who wanted a bladder scan in the ER to rule out urinary retention.
The patient initially was unable to void and after some pain medication and after sleeping some period of time was able to void and felt much better. He still had the dysuria with urination but his PVR was 72. Patient's white count was reassuring,
his creatinine was normal and his UA shows no nitrites but white cells and red cells which is quite common with stent. I spoke again with the urologist and requested to place the patient on Pyridium which he agreed would be okay to trial along with
the Gemtesa. Patient also does not like the oxycodone and would prefer trying Vicodin. He is aware that Vicodin has Tylenol in it. He was aware to stay under 4 g a day of Tylenol. Also noted that the patient's UA had yeast. Maybe this is the
cause for some of his discomfort and a dose of Diflucan was given. Patient is to call his urologist in 2 days if he still having symptoms and they may remove the stent early
<Staci Kendrick INSTRUMENTATION ENGINEERING TECHNICIAN - Last Filed: 06/22/24 10:13>
MDM/Problems Addressed
MDM/Problems Addressed:
48-year-old male status post a left sided lithotripsy and ureteral stent placement 3 days ago presenting for what sounds like stent colic with left flank pain that comes in waves associated with some burning with urination, dribbling of urine.
Patient has already been on oxycodone, Tylenol and was added Gemtesa as well as Valium yesterday. Patient took 2 doses really had relief. He says he just has pretty severe agony with urination and tries not to urinate. He has not had any systemic
symptoms. He called the urologist who told him to come in to be sure he was not retaining. I spoke with the urologist on-call Dr. Alvares who wanted a bladder scan in the ER to rule out urinary retention.
The patient initially was unable to void and after some pain medication and after sleeping some period of time was able to void and felt much better. He still had the dysuria with urination but his PVR was 72. Patient's white count was reassuring,
his creatinine was normal and his UA shows no nitrites but white cells and red cells which is quite common with stent. I spoke again with the urologist and requested to place the patient on Pyridium which he agreed would be okay to trial along with
the Gemtesa. Patient also does not like the oxycodone and would prefer trying Vicodin. He is aware that Vicodin has Tylenol in it. He was aware to stay under 4 g a day of Tylenol. Also noted that the patient's UA had yeast. Maybe this is the
cause for some of his discomfort and a dose of Diflucan was given. Patient is to call his urologist in 2 days if he still having symptoms and they may remove the stent early
Pharmacy called, back order of [place] 5/325. Requested new order for [place] 5/300, sent
<Krysta Perez PA-C - Last Filed: 06/22/24 00:00>
*Critical Care Note
Total Time (30-74mins, 75-104mins- exclusive of procedures): Not Applicable
ED Attending Note
<Krysta Perez PA-C - Last Filed: 06/22/24 00:00>
-
Portions of this chart may have been created with voice recognition software.� Occasional wrong word or��sound alike� substitutions may have occurred due to the inherent limitations of voice recognition software.
Discharge Plan
Departure
Patient Disposition: Home (Routine Discharge)
Date of Disposition: 06/21/24
Time of Disposition: 20:00
Patient with high blood pressure during this ER visit?: No
Condition: Fair
Discharge Problem:
Renal colic, Dysuria
Instructions: Renal Colic (DC)
Prescriptions:
New
phenazopyridine [Pyridium] 200 mg tablet
200 mg PO TID PRN (Reason: Pain) 2 Days Qty: 6 0RF
hydrocodone-acetaminophen 5-300 mg tablet
1 tab PO Q6H PRN (Reason: Pain) Qty: 10 0RF
No Action
potassium citrate 99 mg Capsule
99 mg PO BID
albuterol sulfate 90 mcg/actuation Hfa Aerosol Inhaler
2 puff INHALATION PRN PRN (Reason: SOB, Wheezes)
Referrals:
Eben Ramon MD [Active] - Follow up in 2-3 days
Tomasz Baker MD [Family Provider] -
Activity Restrictions/Additional Instructions:
YOUR WORK UP HERE IS REASSURING THAT YOUR PAIN IS LIKELY FROM THE STENT AND PASSING THE STONES
DR. ALVARES SAID YOU CAN TRY THE VALIUM 2 TIMES A DAY
YOU CAN TAKE PYRIDIUM 200 3 TIMES A DAY FOR 2 DASY TO SEE IF THIS HELPS
YOU CAN CONTINUE THE GEMTASA WELL PER DR. ALVARES
YOU ALSO HAD SOME YEAST IN YOUR URINE, SO I GAVE YOU A DOSE OF DIFLUCAN HERE WHICH ALSO MAY HELP
DRINK FLUIDS
FOLLOW UP WITH UROLOGY ON SUNDAY IF YOU ARE STILL HAVING PAIN
YOU CAN CONTINUE THE OXYCODONE LONG IT IS SPACED OUT FROM THE VALIUM (DIAZEPAM) SO IT DOESN'T MAKE YOU SLEEPY
RETURN FOR FEVER, VOMITING, SEVERE PAIN, INABILITY TO PEE OR ANY CONCERNS.
Interventions
Interventions:
*Risk Screen - Suicide Last Done: 06/21/24 15:50
*General Assessment Last Done: 06/21/24 15:50
*Neglect/Abuse Screening Last Done: 06/21/24 15:50
ED- Fall Risk Assessment Last Done: 06/21/24 20:34
*ED COVID-19 Vaccine History Last Done: 06/21/24 15:50
*Nursing Disposition Last Done: 06/21/24 20:34
CZ-Ucymjl-[id number] Assessment Last Done: 06/21/24 15:51
ED-Male Genitourinary Assessment Last Done: 06/21/24 15:51
Discharge Date and Time
Discharge Date/Time: 06/21/24 20:34
Print Language: TRISTANIAN
[2024-06-21 17:26] LABS: % Basophils 0.6 % (0-2); % Eosinophils 0.9 % (0-6); % Immature Granulocytes 0.2 % (0-0.5); % Monocytes 10.3 % (1.7-9.3); Absolute Eosinophils 0.1 10^3/uL (0-0.7); Absolute Lymphocytes 1.8 10^3/uL (1.2-3.4); Absolute Monocytes 0.7 10^3/uL (0.1-0.6); Hematocrit 42.1 % (39.0-52.0); Mean Corp Hgb Conc. 35.6 g/dL (33.0-37.0); Mean Corpuscular Hgb 31.9 pg (27.0-31.0); Mean Corpuscular Volume 89.6 fL (80.0-94.0); Mean Platelet Volume 7.8 fL (7.4-10.4); Nucleated Red Blood Cells % 0 % (-); Platelet Count 229 10^3/uL (130-400); Red Cell Dist. Width 13.2 % (11.5-14.5); White Blood Cell Count 6.6 10^3/uL (4.8-10.8)
[2024-06-21 17:43] LABS: ALT (SGPT) 31 U/L (0-50); AST (SGOT) 27 U/L (17-59); Albumin 4.4 g/dl (3.5-5.0); Alkaline Phosphatase 54 U/L (38-126); Blood Urea Nitrogen 16 mg/dl (9-20); Calcium 9.8 mg/dl (8.4-10.2); Carbon Dioxide 25 mmol/L (22-30); Chloride 106 mmol/L (98-107); Glucose 84 mg/dl (70-99); Potassium 4.4 mmol/L (3.5-5.1); Sodium 137 mmol/L (135-145); Total Bilirubin 0.6 mg/dl (0.2-1.3); Total Protein 6.7 g/dl (6.3-8.2); eGFR > 60.00
[2024-06-21 19:34] LABS: Urine Albumin 1+ (Neg - Trace); Urine Bilirubin Negative (Negative); Urine Character Clear (Clear); Urine Color Yellow; Urine Glucose Negative (Negative); Urine Ketone Negative (Negative); Urine Leukocyte 2+ (Negative); Urine Nitrite Negative (Negative); Urine Occult Blood 4+ (Negative); Urine Urobilinogen Negative (Neg - 1+)
[2024-06-21 19:47] LABS: Urine Red Blood Cell 30-40 /HPF (0-2); Urine White Cell 26-30 /HPF (0-5); Urine Yeast Few (Negative)
[2024-06-21 20:17] VITALS: BP 113/70
[2024-06-21] MEDS: Pyridium 200 MG PO (20:27)
[2024-06-21] MEDS: DIFLUCAN 150 MG PO (20:27)
== END 2024-06-21 20:34 | disposition home or self-care (01) ==
LOC: EMR 15:35
PROVIDERS: Physician Assistant; EMERGENCY PHYSICIAN Emergency Medicine; FAMILY PHYSICIAN Family Medicine
DX: N23 Unspecified renal colic (principal); R30.0 Dysuria; J45.909 Unspecified asthma, uncomplicated; Z87.442 Personal history of urinary calculi; Z87.891 Personal history of nicotine dependence
CPT/HCPCS: 99283; 96374; 96375; 80053; 81003; 81015; 85025; 87086